=== PATIENT | female | born 1985 | race Caucasian/White ===

== ENCOUNTER 2019-07-20 09:47 | Emergency (ER) | payer OTHER, SELFPAY ==
--- NOTE | ~2019-07-20 | XR_ITS ---
XR chest 2V DATE: 07/20/2019 10:43 INDICATION: Cough, fever TECHNIQUE: PA and lateral views COMPARISON: None FINDINGS: Normal heart size. No hilar or mediastinal enlargement. No pulmonary infiltrate or consolid ation, pleural effusion or pulmonary vascular congestion or pneumothorax. Surgical clips overlie the right upper quadrant, consistent with cholecystectomy. There is mild scoliosis of the thoracic and lumbar spine. IMPRESSION: No active cardiopulmonary disease Reviewed, dictated and finalized at location D.
[2019-07-20 09:56] VITALS: BP 118/74; PULSE 95; RESP 21; TEMP 37.6; O2SAT 100
--- NOTE | 2019-07-20 10:36 | ED.URI ---
HPI - URI/Sore Throat General Chief Complaint: Upper Respiratory Infection Stated Complaint: Cough Time Seen by Provider: 07/20/19 10:23 Source: patient and RN notes reviewed Mode of arrival: ambulatory Limitations: no limitations History of Present Illness HPI Narrative: Patient presents today complaining of a 2-day history of productive cough, fever up to 100, congestion, rhinorrhea, shortness of breath with exertion. Today, she developed chest wall pain. She is a non-smoker. No history of asthma or COPD. She has been taking DayQuil and NyQuil with some relief. MD elicited complaint: cough Related Data Home Medications Medication Instructions Recorded Confirmed dihydroergotamine 0.5 mg INTRANASAL DIRECTED 07/20/19 07/20/19 erenumab-aooe [Aimovig 70 mg SUBCUT DIRECTED 07/20/19 07/20/19 Autoinjector] levetiracetam 1,000 mg PO DAILY 07/20/19 07/20/19 levothyroxine 25 mcg PO DAILY 07/20/19 07/20/19 Allergies Allergy/AdvReac Type Severity Reaction Status Date / Time Sulfa (Sulfonamide Allergy Mild Hives Verified 07/20/19 09:59 Antibiotics) Review of Systems Review of Systems: Narrative: CONSTITUTIONAL: Denies body aches, chills, or sweats.+ Fever EYES: Denies visual changes, redness, or discharge. ENT: Denies sore throat, or otalgia.+ Congestion, rhinorrhea CARDIOVASCULAR: Denies chest pain, palpitations, or edema. RESPIRATORY: + Cough, shortness of breath with exertion, chest wall pain GASTROINTESTINAL: Denies abdominal pain, nausea, vomiting, or diarrhea. GENITOURINARY: Denies dysuria or hematuria. SKIN: Denies rash, itching, or wounds. MUSCULOSKELETAL: Denies back pain, joint pain, or myalgia. NEUROLOGIC: Denies headache, numbness, tingling, or weakness. PSYCH: Denies depression or anxiety. [facility] Past Medical History Medical History (Updated 07/20/19 @ 10:55 by Nia Watkins, [employer]NAGER, ) Epilepsy Migraines Comments At time of signature, I have reviewed and agree with nursing past medical, surgical, social and family history unless otherwise noted. Please see nursing chart for further information. There is no relevant family history pertinent to the presenting complaint Exam Narrative: Exam Narrative: GENERAL: Well-appearing, well-nourished, and in no acute distress. HEAD: Normocephalic, atraumatic. EYES: EOMI. No redness or drainage. Conjunctivae normal. ENT: Mucous membranes pink and moist. Nares congested. No rhinorrhea. TMs normal bilaterally. Throat normal. Uvula midline. NECK: Normal AROM. Supple. No lymphadenopathy. CHEST: No respiratory distress. Crackles in the left lower lobe, otherwise clear. HEART: Regular rate and rhythm. No murmur appreciated. Normal peripheral pulses. EXTREMITIES: Normal range of motion. No edema. SKIN: Warm, dry, no rash. NEURO: No focal deficits. Alert and oriented x3. Gait steady. PSYCH: Normal affect. No signs of depression or anxiety. Course Vital Signs Vital signs: Vital Signs Temperature 99.6 F 07/20/19 09:56 Pulse Rate 95 07/20/19 09:56 Respiratory Rate 21 H 07/20/19 09:56 Blood Pressure 118/74 07/20/19 09:56 Pulse Oximetry 100 07/20/19 09:56 Temperature 99.6 F 07/20/19 09:56 Pulse Rate 95 07/20/19 09:56 Respiratory Rate 21 H 07/20/19 09:56 Blood Pressure 118/74 07/20/19 09:56 Pulse Oximetry 100 07/20/19 09:56 Reviewed MDM - URI/Sore Throat Differential Diagnosis Differential diagnosis: Likely upper respiratory infection, sinusitis, viral infection, bronchitis and other (Pneumonia) Lab Data Attestation: I reviewed the patient's lab results. Labs: Influenza A Screen Negative Reference Range: Negative Influenza B Screen Negative Reference Range: Negative Imaging Data Radiologist's impression: ITS Impressions Chest X-Ray 07/20/19 10:45 IMPRESSION: No active cardiopulmonary disease Critical Care Time Critical Care Time Cri
== END 2019-07-20 11:12 | disposition home or self-care (01) ==
PROVIDERS: Emergency Provider Nurse Practitioner
DX: J40 Bronchitis, not specified as acute or chronic (principal); J06.9 Acute upper respiratory infection, unspecified; G40.909 Epilepsy, unspecified, not intractable, without status epilepticus
CPT/HCPCS: 71046; 87804; 99213; G0463